=== PATIENT | male | born 1945 | race African-American/Black ===

== ENCOUNTER 2018-12-22 14:14 | Emergency (ER) | payer OTHER ==
[~2018-12-22] VITALS: Ht 177.8 cm; Wt 80.7 kg
[2018-12-22] MEDS ORDERED: ROBAXIN 750 MG750 M1 PO (15:30)
[2018-12-22] MEDS ORDERED: NORCO 5-325 TA1 EACH PO (15:30)
[2018-12-22 17:09] VITALS: BP 110/46
[2018-12-23] MEDS ORDERED: ALLOPURINOL 10100 M1 PO (04:46)
[2018-12-23] MEDS ORDERED: ASPIR 8181 MG PO (04:47)
[2018-12-23] MEDS ORDERED: DIGOXIN125 MCG PO (04:47)
[2018-12-23] MEDS ORDERED: COMBIVENT INH (04:48)
[2018-12-23] MEDS ORDERED: PROPRANOLOL 1010 MG PO (04:49)
[2018-12-23] MEDS ORDERED: CENTRUM SILVER1 EAC2 PO (04:49)
[2018-12-23] MEDS ORDERED: LIDODERM1 EACH TOP (04:50)
[2018-12-23] MEDS ORDERED: TYLENOL325 MG PO (04:50)
== END 2018-12-22 17:15 | disposition home or self-care (01) ==
LOC: ER 14:14
DX: M47.897 Other spondylosis, lumbosacral region (principal); M06.9 Rheumatoid arthritis, unspecified; I12.0 Hypertensive chronic kidney disease with stage 5 chronic kidney disease or end stage renal disease; N18.6 End stage renal disease; Z99.2 Dependence on renal dialysis; Z87.01 Personal history of pneumonia (recurrent); Z88.0 Allergy status to penicillin; Z88.1 Allergy status to other antibiotic agents

== ENCOUNTER 2018-12-23 04:34 | Emergency (ER) | payer OTHER ==
[~2018-12-23] VITALS: Ht 177.8 cm; Wt 79.8 kg
[~2018-12-23 04:34] MED LIST: NORCO 5-325 TA1 EACH PO; ROBAXIN 750 MG750 M1 PO
[2018-12-23] MEDS ORDERED: ALLOPURINOL 10100 M1 PO (04:46)
[2018-12-23] MEDS ORDERED: ASPIR 8181 MG PO (04:47)
[2018-12-23] MEDS ORDERED: DIGOXIN125 MCG PO (04:47)
[2018-12-23] MEDS ORDERED: COMBIVENT INH (04:48)
[2018-12-23] MEDS ORDERED: CENTRUM SILVER1 EAC2 PO (04:49)
[2018-12-23] MEDS ORDERED: PROPRANOLOL 1010 MG PO (04:49)
[2018-12-23] MEDS ORDERED: TYLENOL325 MG PO (04:50)
[2018-12-23] MEDS ORDERED: LIDODERM1 EACH TOP (04:50)
--- NOTE | 2018-12-23 09:43 | EKG ---
[address] [place] [address] ELECTROCARDIOGRAM REPORT Name: SANDY ROLDAN [id number] Admission: 12/23/18 Attend Phys: Discharge: Date of : 49 Report #: [id number] THIS REPORT FOR: //name// [facility] ED Test Date: 2018-12-23 Test Time: 06:10:07 Pat Name: SANDY ROLDAN Department: Room: Gender: M [employer]ning [employer] Pat[employer]: SURESH SANDERS : 1945 Requested By: Basilio Mora Order Number: [id number] MD: Rogelio Araya Measurements Intervals [place] Rate: 84 P: 41 NE: 190 QRS: 41 QRSD: 86 T: 51 QT: 370 QTc: 438 Interpretive Statements Sinus rhythm Atrial premature complex Compared to ECG 01/08/1999 18:15:00 Atrial premature complex(es) now present Ventricular premature complex(es) no longer present Electronically Signed On 12-23-2018 9:43:04 SVP PROGRAMMATIC TV by Rogelio Araya [email or web address] <ELECTRONICALLY SIGNED> By: Rogelio Araya MD, [facility] 12/23/18 0943 9 9 Rogelio Araya MD, [facility] /EPI
[2018-12-23 10:00] VITALS: BP 118/53
== END 2018-12-23 10:06 ==
LOC: ER 04:34
DX: M54.5 Low back pain (principal); G89.29 Other chronic pain; R41.0 Disorientation, unspecified; M06.9 Rheumatoid arthritis, unspecified; I12.0 Hypertensive chronic kidney disease with stage 5 chronic kidney disease or end stage renal disease; N18.6 End stage renal disease; Z99.2 Dependence on renal dialysis; Z88.1 Allergy status to other antibiotic agents; Z88.0 Allergy status to penicillin